=== PATIENT | female | born 1935 | race African-American/Black ===

== ENCOUNTER 2017-05-18 12:50 | Outpatient (CLI) | payer MEDICARE, OTHER | END 2017-05-18 12:51 | disposition home or self-care (01) | LOC: BICRAD 12:50 | PROVIDERS: ATTEND Family Medicine | DX: M54.5 Low back pain (principal); M51.34 Other intervertebral disc degeneration, thoracic region; M41.85 Other forms of scoliosis, thoracolumbar region; M47.896 Other spondylosis, lumbar region | CPT/HCPCS: 72072; 72100 ==

== ENCOUNTER 2018-10-01 14:29 | Inpatient (IN) | payer MEDICARE, OTHER ==
[2018-10-01 15:51] LABS: #Basophils 0.1 thou/uL (0.0-0.2); #Eosinphils 0.1 thou/uL (0.0-0.7); #Neutrophils 8.1 thou/uL (1.40-6.50); %Eosinophils 0.7 % (0.0-10.0); %Lymphocytes 24.5 % (21.0-51.0); %Monocytes 8.3 % (0.0-10.0); %Neutrophils 65.5 % (42.0-75.0); Hemoglobin 11.7 g/dL (12.0-16.0); Mean Corpuscular HGB CONC 32.4 g/dL (32.0-36.0); Mean Corpuscular Hemoglobin 28.8 pg (27.0-31.0); Mean Corpuscular Volume 88.9 fL (78.0-98.0); Platelet Count 365 thou/uL (130-400); RBC Distribution Width 13.8 % (11.5-14.5); Red Blood Cell (RBC) Count 4.06 mill/uL (4.20-5.40); White Blood Cell (WBC) Count 12.4 thou/uL (4.8-10.8)
[2018-10-01 16:11] LABS: ALT (SGPT) 8 U/L (8-55); AST (SGOT) 13 U/L (5-34); Albumin 3.6 g/dL (3.4-4.8); Alkaline Phosphatase 45 U/L (40-150); Anion Gap 15 mmol/L (10-20); BUN (Urea Nitrogen) 64 mg/dL (9.8-20.1); Bilirubin, Total 0.5 mg/dL (0.2-1.2); Calc. Creatinine Clearance 0 mL/min (70-130); Calcium 9.3 mg/dL (7.8-10.44); Carbon Dioxide 21 mmol/L (23-31); Chloride 107 mmol/L (98-107); Estimated GFR-MDRD 12; Globulin 3.5 g/dL (2.4-3.5); Glucose 115 mg/dL (83-110); Potassium 4.6 mmol/L (3.5-5.1); Protein, Total 7.1 g/dL (6.0-8.3); Sodium 138 mmol/L (136-145)
[2018-10-01 16:49] LABS: CK (CPK) 43 U/L (29-168); Lipase 35 U/L (8-78)
--- NOTE | 2018-10-01 17:03 | RAD ---
PORTABLE CHEST 1 VIEW: Date: 10/01/18 Time: 1540 hours HISTORY: Fever. FINDINGS: The heart size is borderline. The aorta is tortuous. The lungs are expanded without focal areas of co nsolidation, pneumothoraces, or pleural effusions. There is evidence of old granulomatous disease. IMPRESSION: No acute process. POS: [facility]
[2018-10-01] MEDS ORDERED: Cefepime 2 GM VIAL ONE (17:52)
[2018-10-01] MEDS ORDERED: Acetaminophen 325 MG TAB PO PRN (19:44)
[2018-10-01] MEDS ORDERED: Cefepime 2 GM in Sodium Chloride 0.9% 100 ML IVPB SCH (20:00)
[2018-10-01] MEDS: Sodium Chloride 0.9% 1,000 ML IV SCH (20:07)
[2018-10-01] MEDS ORDERED: Ondansetron PF 4 MG/2 ML Vial IVP PRN (20:38)
[2018-10-01] MEDS ORDERED: Ondansetron ODT 4 MG TAB PO PRN (20:38)
[2018-10-01] MEDS ORDERED: Cefepime 1 GM in Sodium Chloride 0.9% 100 ML IVPB SCH (21:00)
[2018-10-01 21:43] VITALS: BMI 22.1
[2018-10-01] MEDS ORDERED: Melatonin 3 MG TAB PO SCH (21:45)
[2018-10-01] MEDS ORDERED: Carvedilol 6.25 MG TAB PO SCH (21:45)
[2018-10-01] MEDS ORDERED: Donepezil HCl 10 MG TAB PO SCH (21:45)
[2018-10-01] MEDS ORDERED: Loratadine 10 MG TAB PO SCH (21:45)
[2018-10-01] MEDS ORDERED: Sodium Bicarbonate Tab 325 MG TAB PO SCH (22:15)
[2018-10-01] MEDS ORDERED: hydrALAZINE 25 MG TAB PO SCH (22:15)
[2018-10-01 23:55] LABS: Bilirubin Negative (Negative); Blood, Urine Negative (Negative); Clarity CLEAR (Clear); Glucose, Urine (Dipstick) Negative (Negative); Leukocyte Negative (Negative); Nitrite Negative (Negative); Protein, Urine (Dipstick) 300 mg/dL (Neg-Trace); Specific Gravity, Urine 1.014 (1.002-1.036); Urobilinogen 0.2 mg/dL (0.2-1.0); pH, Urine 5.5 (5.0-9.0)
[2018-10-01 23:56] LABS: Bacteria/HPF None Seen HPF (None Seen); Hyaline Casts/LPF 0-3 HYALINE CAST LPF (0-3 Hyaline); Pathc Cast-AUWi Flag 0.67 (0-2.49); RBC/HPF 0-3 HPF (0-3); Squamous Epithelial 0-3 HPF (0-3); WBC/HPF 0-3 HPF (0-3)
[2018-10-01 23:57] LABS: Urine Culture Reflex No No
[2018-10-02] MEDS: Sodium Chloride 0.9% 1,000 ML IV SCH ×2 (05:00→16:34)
[2018-10-02 06:45] LABS: #Basophils 0.1 thou/uL (0.0-0.2); #Eosinphils 0.1 thou/uL (0.0-0.7); #Lymphocytes 3.1 thou/uL (1.20-3.40); #Neutrophils 7.1 thou/uL (1.40-6.50); %Basophils 0.4 % (0.0-1.0); %Eosinophils 0.8 % (0.0-10.0); %Lymphocytes 27.4 % (21.0-51.0); %Monocytes 8.5 % (0.0-10.0); %Neutrophils 62.8 % (42.0-75.0); Hemoglobin 9.7 g/dL (12.0-16.0); Mean Corpuscular HGB CONC 33.2 g/dL (32.0-36.0); Mean Corpuscular Hemoglobin 29.2 pg (27.0-31.0); Mean Corpuscular Volume 87.8 fL (78.0-98.0); Mean Platelet Volume 7.9 fL (7.4-10.4); Platelet Count 292 thou/uL (130-400); RBC Distribution Width 13.5 % (11.5-14.5); Red Blood Cell (RBC) Count 3.33 mill/uL (4.20-5.40); White Blood Cell (WBC) Count 11.3 thou/uL (4.8-10.8)
[2018-10-02 07:00] LABS: Anion Gap 12 mmol/L (10-20); BUN (Urea Nitrogen) 58 mg/dL (9.8-20.1); Calc. Creatinine Clearance 12 mL/min (70-130); Calcium 8.3 mg/dL (7.8-10.44); Carbon Dioxide 19 mmol/L (23-31); Chloride 111 mmol/L (98-107); Estimated GFR-MDRD 14; Glucose 86 mg/dL (83-110); Potassium 4.3 mmol/L (3.5-5.1); Sodium 138 mmol/L (136-145)
[2018-10-02] MEDS: hydrALAZINE 25 MG TAB PO SCH ×3 (08:25→20:59)
[2018-10-02] MEDS: Sodium Bicarbonate Tab 325 MG TAB PO SCH ×2 (08:25→20:59)
[2018-10-02] MEDS: Carvedilol 6.25 MG TAB PO SCH ×2 (08:25→16:36)
[2018-10-02] MEDS: Febuxostat 40 MG TAB PO SCH (08:25)
[2018-10-02] MEDS: Amlodipine 10 MG TAB PO SCH (08:26)
[2018-10-02] MEDS: Enoxaparin Sodium 30 MG/0.3 ML SYRINGE SC SCH (08:26)
--- NOTE | 2018-10-02 08:26 | HP ---
PRIMARY CARE DOCTOR: CODE STATUS: Full code. TIME OF EVALUATION: 8:25 p.m. CHIEF COMPLAINT: Fever. HISTORY OF PRESENT ILLNESS: This is an 82 years old female patient with past medical history of dementia, hypertension, history of kidney disease, recurrent UTI. The patient came to the hospital after having fever for the past 2 days. Initially the daughter gave some Tylenol, the symptoms improved, then she had fever again today and she was recommended by the home health nurse to bring the patient to the hospital. The patient finished with Cipro in the past week for UTI treatment. The patient denies any other major symptoms. Symptoms were reported to be mild likely triggered by UTI. No alleviating factors. REVIEW OF SYSTEMS: CONSTITUTIONAL: The patient has underlying dementia. Information had been gathered from the daughter. The patient has fever, chills, generalized weakness. RESPIRATORY: No cough, sputum production, shortness of breath. CARDIOVASCULAR: No chest pain or palpitation. GASTROINTESTINAL: No nausea. No vomiting, diarrhea or abdominal pain. RIVER CAPTAIN: No dizziness, headache or feeling lightheaded. GENITOURINARY: No burning on urination. EXTREMITIES: No leg swelling. All other systems were reviewed and negative except for the findings mentioned above. PAST MEDICAL HISTORY: Positive for hypertension, kidney disease. SOCIAL HISTORY: The patient lives at home with family. PAST SURGICAL HISTORY: Negative. FAMILY HISTORY: Mother had an FL. Father has prostate cancer. ALLERGIES: NO KNOWN DRUG ALLERGIES REPORTED. MEDICATIONS: 1. Carvedilol. 2. Uloric. 3. Megestrol. The list needs to be updated by the nursing staff. That was given by the patient, it needs to be reviewed later on. PHYSICAL EXAMINATION: VITAL SIGNS: Blood pressure 124/63, heart rate 78, respiratory rate of 15, temperature 99, pain 8/10. Oxygen saturation was 98% on room. GENERAL APPEARANCE: The patient is alert, oriented, can start simple conversations. No acute distress. HEENT: Eyes, normal conjunctivae. Moist oral mucosa. Anicteric. No JVD. RESPIRATORY: Bilateral air entry. No rales or wheezes. Symmetric expansion. CARDIOVASCULAR: Normal rate. Regular rhythm. No murmurs. No gallop. No edema. ABDOMEN: Soft. Normal bowel sounds. MUSCULOSKELETAL: Baseline range of motion and strength. No tenderness. SKIN: Warm and intact. No pallor. No rash. No redness. EXTREMITIES: Peripheral pulses are present. Capillary refill seems to be intact. NEUROLOGICAL: No evidence of any new focal weakness. Speech seems to be intact. Cranial nerves seems to be intact. PSYCHIATRIC: The patient is in good mood. The patient has underlying dementia, suboptimal judgment. IMAGING DATA: EKG was reviewed. The patient has sinus rhythm with some PACs. Ventricular rate 77, IA 152, QRS 78, and QT corrected 463. left ventricular hypertrophy. Chest x-ray was negative. LABORATORY DATA: Reviewed. The patient has white count 12.4, hemoglobin 11.7, MCV 88.9, platelet count 365. Chemistry: Sodium 138, potassium 4.6, chloride 107, carbon dioxide 21, anion gap 15, BUN 64, creatinine 4.3, GFR 12, glucose 115, lactic acid 1.6. LFTs were negative. Beta-natriuretic peptide 140. ASSESSMENT AND PLAN: The patient will be placed in the hospital for the follow medical problems: 1. Urinary tract infection, the urine is pending. The patient presented with fever. The patient had recent urinary tract infection. The patient has been started on cefepime since she was getting Cipro past week. We will follow urine culture and adjust treatment as needed as per sensitivity. 2. Possible sepsis. The patient has fever. The patient has white count 12.4, started on antibiotics. Rest of treatment as above. 3. Chronic kidney disease. been consulted. We will follow recommendations. 4. Hyperglycemia. No reported diabetes. Can be secondary to underlying sepsis, we will monitor, no need for any acute intervention at this point. 5. Deep venous thrombosis prophylaxis. 6. Uncontrolled hypertension. The patient presented with systolic blood pressure 178. We will reconcile home medications. We will not treat very aggressively since patient has underlying sepsis. 7. Deep venous thrombosis prophylaxis. Job ID: [id number]
[2018-10-02] MEDS ORDERED: Cefepime 1 GM in Sodium Chloride 0.9% 100 ML IVPB SCH (09:00)
--- NOTE | 2018-10-02 10:15 | CON ---
DATE OF CONSULTATION: 10/02/2018 CONSULTING PHYSICIAN: Kevin Gannon MD REASON FOR CONSULT: Acute kidney injury. REASON FOR ADMISSION: Fever. HISTORY OF PRESENT ILLNESS: An 82-year-old female with history of chronic kidney disease and followed with Dr. Alfonso, hypertension, and gout, came to the hospital with above complaints. Nephrology was consulted for acute kidney injury. The patient is a poor historian, not able to give much history, and most of the history was obtained from the review of the records. no rash. No nausea or vomiting. No chest pain or palpitation. PAST MEDICAL HISTORY: Positive for hypertension, chronic kidney disease, and gout. PAST SURGICAL HISTORY: None known. HOME MEDICATIONS: Include: 1. Furosemide. 2. Uloric. 3. Norvasc. 4. Megace. 5. Melatonin. 6. Hydralazine. 7. Donepezil. 8. Carvedilol. ALLERGIES: NO KNOWN DRUG ALLERGIES. SOCIAL HISTORY: No smoking, alcohol, or illicit drug abuse. FAMILY HISTORY: No history of kidney disease. REVIEW OF SYSTEMS: Could not be obtained. The patient is a poor historian. PHYSICAL EXAMINATION: GENERAL: Reveals an elderly female, in no apparent distress. VITAL SIGNS: Temperature 98.3, pulse 70, respiratory rate 16, and blood pressure 152/48. HEENT: Atraumatic, normocephalic. Oral mucosa is moist. NECK: Supple. CARDIOVASCULAR: S1, S2 heard. Rate and rhythm regular. RESPIRATORY: Clear. GASTROINTESTINAL: Abdomen is soft. MUSCULOSKELETAL: 1+ edema. DERMATOLOGIC: No skin rash. NEUROLOGIC: Alert and awake, but confused and dementia. PSYCHIATRIC: Mood and affect normal. LABORATORY DATA: Hemoglobin 9.7. Potassium 4.3, BUN is 58, and creatinine is 3.7. Her baseline creatinine is around 2.6 to 3. ASSESSMENT AND PLAN: 1. Acute kidney injury on chronic kidney disease, stage 4, with a slight improvement in renal function with medical management. No acute indication for dialysis. 2. Metabolic acidosis. 3. Anemia of chronic disease. 4. Hypertension, stable. 5. Dementia. Continue supportive care. No acute indication for dialysis. Avoid nephrotoxins. We will follow. Thank you for the consult. Job ID: [id number]
[2018-10-02] MEDS: Stress 600 With Zinc 1 TAB PO SCH (12:07)
--- NOTE | 2018-10-02 14:31 | PDOC.PN ---
- Subjective Encounter Start Date: 10/02/18 Encounter Start Time: 14:29 Ms. Boles was seen today in follow-up. She says she feels better today. No new complaints except for a cough, which is non-productive. - Objective Resuscitation Status - Order Detail: 10/01/18 20:38 Resuscitation Status Routine Resuscitation Status: FULL: Full Resuscitation MAR Reviewed: Yes Vital Signs & Weight: Vital Signs (12 hours) Temp Pulse Resp BP BP Pulse Ox 10/02/18 08:26 70 152/48 H 10/02/18 08:25 70 152/48 H 10/02/18 08:02 98.3 F 70 16 152/48 H 96 10/02/18 08:00 96 10/02/18 05:32 98.6 F 73 20 175/67 H 96 Weight Weight 146 lb I&O: 10/01/18 10/02/18 10/03/18 06:59 06:59 06:59 Intake Total 1900 Output Total 700 Balance 1200 Result Diagrams: 10/02/18 05:59 10/02/18 05:59 Phys Exam - Physical Examination HEENT: PERRLA Respiratory: no wheezing Cardiovascular: RRR, no significant murmur, no rub Gastrointestinal: soft, non-tender, no distention, positive bowel sounds Musculoskeletal: no edema, pulses present Neurological: non-focal, normal sensation Dx/Plan (1) Fever Code(s): R50.9 - FEVER, UNSPECIFIED Status: Acute (2) Acute on chronic renal failure Code(s): N17.9 - ACUTE KIDNEY FAILURE, UNSPECIFIED; N18.9 - CHRONIC KIDNEY DISEASE, UNSPECIFIED Status: Acute (3) Hypertension Code(s): I10 - ESSENTIAL (PRIMARY) HYPERTENSION Status: Acute (4) Dementia Code(s): F03.90 - UNSPECIFIED DEMENTIA WITHOUT BEHAVIORAL DISTURBANCE Status: Chronic - Plan * Acute on chronic kidney failure- improving with hydration * UTI- This is not apparent with the lab work on this admission. It could be partially treated with antibiotics prior to admission. I suspect we can discontinue Antibiotics and observe * HTN - blood pressure is stable * Dementia- stable * Ambulate
[2018-10-02] MEDS ORDERED: Loratadine 10 MG TAB PO PRN (15:34)
[2018-10-02] MEDS ORDERED: Acetaminophen 325 MG TAB PO PRN (15:35)
[2018-10-02] MEDS: Melatonin 3 MG TAB PO SCH (20:57)
[2018-10-02] MEDS: Loratadine 10 MG TAB PO SCH (20:58)
[2018-10-02] MEDS: Donepezil HCl 10 MG TAB PO SCH (20:59)
[2018-10-02] MEDS ORDERED: Melatonin 3 MG TAB PO SCH (21:00)
[2018-10-02] MEDS ORDERED: Loratadine 10 MG TAB PO SCH (21:00)
[2018-10-02] MEDS ORDERED: Donepezil HCl 10 MG TAB PO SCH (21:00)
[2018-10-03] MEDS: Sodium Chloride 0.9% 1,000 ML IV SCH ×3 (01:00→08:24)
[2018-10-03 06:31] LABS: Anion Gap 13 mmol/L (10-20); BUN (Urea Nitrogen) 47 mg/dL (9.8-20.1); Calc. Creatinine Clearance 13 mL/min (70-130); Carbon Dioxide 16 mmol/L (23-31); Chloride 111 mmol/L (98-107); Estimated GFR-MDRD 16; Glucose 92 mg/dL (83-110); Sodium 135 mmol/L (136-145)
[2018-10-03] MEDS: Febuxostat 40 MG TAB PO SCH (08:12)
[2018-10-03] MEDS: hydrALAZINE 25 MG TAB PO SCH ×3 (08:13→20:08)
[2018-10-03] MEDS: Carvedilol 6.25 MG TAB PO SCH ×2 (08:13→17:05)
[2018-10-03] MEDS: Sodium Bicarbonate Tab 325 MG TAB PO SCH (08:14)
[2018-10-03] MEDS: Enoxaparin Sodium 30 MG/0.3 ML SYRINGE SC SCH (08:14)
[2018-10-03] MEDS: Amlodipine 10 MG TAB PO SCH (08:14)
--- NOTE | 2018-10-03 09:40 | PQF ---
AMRIK BIRCH TONI MD [id number] CLINICAL DOCUMENTATION IMPROVEMENT CLARIFICATION FORM: ICD-10 Updated PLEASE DO AN ADDENDUM TO THE PROGRESS NOTE WITH ANY DOCUMENTATION UPDATES OR ADDITIONS AND CARRY THROUGH TO DC SUMMARY. THANK YOU. DATE: 10/03 ATTN: DR. MICHELLE MARS Please exercise your independent, professional judgment in responding to the clarification form. Clinical indicators are provided on the bottom of this form for your review. Please check appropriate box(es): [ ] Sepsis due to: (Pna, UTI, gangrenous gall bladder, etc.) [ ] SIRS due to non-infectious process (please specify etiology) [ ] with organ dysfunction [ ] without organ dysfunction [ ] Severe sepsis with acute organ dysfunction of: (Examples: respiratory failure, encephalopathy, acute kidney failure, other) [ ] Localized infection without sepsis [ X ] Other diagnosis ___Acute renal failure due to dehydration [ ] Unable to determine In addition, please specify: Present on Admission (POA): [X ] Yes [ ] No [ ] Unable to determine For continuity of documentation, please document condition throughout progress notes and discharge summary. Thank You. CLINICAL INDICATORS - SIGNS / SYMPTOMS / LABS ER DOCUMENTATION 10/01: TRIAGE: HIGHEST FEVER WAS MONDAY 103; PRESENTS TO ED C/O FEVER X2 DAYS. RECENTLY FINISHED COURSE OF ABX, CIPRO, LAST WEEK FOR UTI TREATMENT. PT APPEARS TO HAVE SEPSIS ALONG W/WORSENING RENAL FUNCTION. ER FINAL DIAGNOSIS: SEPSIS ATTENDING H&P (LIZZ) 10/01: ASSESSMENT/PLAN: 1) UTI; 2) POSSIBLE SEPSIS. THE PT HAS FEVER. THE PT HAS WHITE COUNT 12.4. STARTED ON ANTIBIOTICS; 4) HYPERGLYCEMIA. NO REPORTED DIABETES. CAN BE 2/2 UNDERLYING SEPSIS; 6) UNCONTROLLED HTN. WE WILL NOT TREAT VERY AGGRESSIVELY SINCE PT HAS UNDERLYING SEPSIS. NEPH CONSULT 10/02: ASSESSMENT/PLAN: 1) ETIENNE NO FURTHER MENTION OF SEPSIS RISKS: RECENT UTI (H&P) ADVANCED AGE (82) FEVER (H&P) ETIENNE (NEPHROLOGY CON 10/02) TREATMENT: IVF (2L NS IN ER 10/01) IV ANTIBIOTICS (CEFEPIME 10/01 - ; LEVAQUIN IN ED 10/01) THANK YOU! Suze (This form is maintained as a part of the permanent medical record) 2014 [employer]. All Rights Reserved Suze Lyons RN, BSN [email or web address] Office: [phone] [facility]
--- NOTE | 2018-10-03 10:29 | PRG ---
DATE OF SERVICE: 10/03/2018 SUBJECTIVE: Patient was seen and examined at bedside and overnight events noted. Patient denies any shortness of breath or chest pain or palpitation. No history of nausea or vomiting or diarrhea or fever or chills or cramps. OBJECTIVE: GENERAL: This is an elderly female, in no apparent distress. VITAL SIGNS: Temperature 98. Heart rate 80. Respiratory rate 16. Blood pressure 182/75. HEENT: Atraumatic, normocephalic. Oral mucosa is moist NECK: Supple. CARDIOVASCULAR: S1, S2 heard. Rate and rhythm regular. RESPIRATORY: Clear to auscultation. GASTROINTESTINAL: Abdomen is soft. MUSCULOSKELETAL: No tenderness. No edema. DERMATOLOGIC: No skin rash. NEUROLOGIC: Alert and awake and oriented X3. No focal neurologic deficits. Moving all the extremities. PSYCHIATRIC: Mood and affect normal. LABORATORY DATA: Potassium is 5.0, BUN is 47, creatinine is 3.3. ASSESSMENT AND PLAN: 1. Acute kidney injury on chronic kidney disease, stage 4. Renal function is stable. 2. Urinary retention. Family reports urinary retention. We will check renal ultrasound. 3. Anemia of chronic disease. 4. Possible urinary tract infection. 5. Dementia. 6. Hypertension. 7. Continue hydration as tolerated. Avoid nephrotoxins. We will stop IV fluids. Continue oral hydration and check renal ultrasound. We will stop sodium bicarb for now. Job ID: [id number]
--- NOTE | 2018-10-03 11:14 | ULT ---
ULTRASOUND RENAL: DATE: 10/03/2018 HISTORY: 82-year-old female with acute kidney injury. Rule out obstruction. FINDINGS: Right kidney: 9 x 3.5 x 4.5 cm. Left kidney: 9 x 4 x 3 cm. Bilateral renal parenchymal echogenicity is diffusely, homogeneously increased, representing medical renal disease. No hydronephrosis bilaterally. 1.5 cm round central mid pole parapelvic right renal cyst. 0.9 cm right renal mid-lower pole parenchymal cyst. Urinary bladder volume 145 mL IMPRESSION: 1) no hydronephrosis. 2) increased renal parenchymal echogenicity is evidence for medical renal disease. 3) at least 2 small right renal cysts.
[2018-10-03] MEDS: Stress 600 With Zinc 1 TAB PO SCH (13:15)
--- NOTE | 2018-10-03 16:22 | PDOC.PN ---
- Subjective Encounter Start Date: 10/03/18 Encounter Start Time: 16:20 Ms. Boles was seen today in follow-up of acute renal failure. She is resting comfortably. No problems voiced by staff. - Objective Resuscitation Status - Order Detail: 10/01/18 20:38 Resuscitation Status Routine Resuscitation Status: FULL: Full Resuscitation MAR Reviewed: Yes Vital Signs & Weight: Vital Signs (12 hours) Temp Pulse Resp BP BP Pulse Ox 10/03/18 11:00 98.5 F 72 16 155/63 H 96 10/03/18 08:14 88 10/03/18 08:13 88 182/75 H 10/03/18 07:39 98.8 F 88 16 182/75 H 98 Weight Weight 146 lb I&O: 10/02/18 10/03/18 10/04/18 06:59 06:59 06:59 Intake Total 1900 3700 Output Total 700 3 Balance 1200 3697 Result Diagrams: 10/02/18 05:59 10/03/18 06:02 Phys Exam - Physical Examination HEENT: PERRLA Respiratory: no wheezing, no rales, no rhonchi, clear to auscultation bilateral Cardiovascular: RRR, no significant murmur, no rub Gastrointestinal: soft, non-tender, no distention, positive bowel sounds Musculoskeletal: no edema, pulses present Dx/Plan (1) Acute on chronic renal failure Code(s): N17.9 - ACUTE KIDNEY FAILURE, UNSPECIFIED; N18.9 - CHRONIC KIDNEY DISEASE, UNSPECIFIED Status: Acute (2) Hypertension Code(s): I10 - ESSENTIAL (PRIMARY) HYPERTENSION Status: Acute (3) Dementia Code(s): F03.90 - UNSPECIFIED DEMENTIA WITHOUT BEHAVIORAL DISTURBANCE Status: Chronic - Plan * Acute on chronic kidney disease- improved with hydration-renal ultrasound was done and was negative for evidence of hydronephrosis * There was no evidence of infection- and antibiotics were discontinued * HTN- blood pressure is labile * Dementia- stable * Hopefully home in the AM.
[2018-10-03] MEDS: Donepezil HCl 10 MG TAB PO SCH (20:07)
[2018-10-03] MEDS: Loratadine 10 MG TAB PO SCH (20:08)
[2018-10-03] MEDS: Melatonin 3 MG TAB PO SCH (22:20)
[2018-10-04] MEDS: Carvedilol 6.25 MG TAB PO SCH (07:50)
[2018-10-04] MEDS: Amlodipine 10 MG TAB PO SCH (07:50)
[2018-10-04] MEDS: hydrALAZINE 25 MG TAB PO SCH (07:50)
[2018-10-04] MEDS: Enoxaparin Sodium 30 MG/0.3 ML SYRINGE SC SCH (07:51)
[2018-10-04] MEDS: Febuxostat 40 MG TAB PO SCH (08:15)
[2018-10-04 09:12] LABS: Anion Gap 10 mmol/L (10-20); BUN (Urea Nitrogen) 44 mg/dL (9.8-20.1); Calc. Creatinine Clearance 14 mL/min (70-130); Calcium 8.6 mg/dL (7.8-10.44); Carbon Dioxide 21 mmol/L (23-31); Chloride 110 mmol/L (98-107); Estimated GFR-MDRD 17; Glucose 128 mg/dL (83-110); Potassium 4.1 mmol/L (3.5-5.1); Sodium 137 mmol/L (136-145)
[2018-10-04 11:13] VITALS: BP 163/64; TEMP 99
--- NOTE | 2018-10-04 11:27 | PRG ---
DATE OF SERVICE: 10/04/2018 SUBJECTIVE: Patient was seen and examined at bedside and overnight events noted. Patient denies any shortness of breath or chest pain or palpitation. No history of nausea or vomiting or diarrhea or fever or chills or cramps. OBJECTIVE: GENERAL: This is an elderly female, in no apparent distress. VITAL SIGNS: Temperature 97. Pulse 63. Respiratory rate 18. Blood pressure 178/72. HEENT: Atraumatic, normocephalic. Oral mucosa is moist NECK: Supple. CARDIOVASCULAR: S1, S2 heard. Rate and rhythm regular. RESPIRATORY: Clear to auscultation. GASTROINTESTINAL: Abdomen is soft. MUSCULOSKELETAL: No tenderness. No edema. DERMATOLOGIC: No skin rash. NEUROLOGIC: Alert and awake and oriented X3. No focal neurologic deficits. Moving all the extremities. PSYCHIATRIC: Mood and affect normal. LABORATORY DATA: Potassium is 4.1, BUN is 44, creatinine is 3.2. ASSESSMENT AND PLAN: 1. Acute kidney injury on chronic kidney stage 4 with improvement of renal function. GFR improved to 17 from 12. Creatinine improved to 3.2 from 4.3. 2. Urinary retention. Ultrasound was negative. 3. Dementia. 4. Hypertension. Overall renal function is better. Continue hydration. Avoid nephrotoxins. We will follow. Job ID: [id number]
[2018-10-04] MEDS: Stress 600 With Zinc 1 TAB PO SCH (12:00)
--- NOTE | 2018-10-04 12:15 | PDOC.PN ---
- Subjective Encounter Start Date: 10/04/18 Encounter Start Time: 12:13 Ms. Boles was seen today in follow-up of acute renal failure. She does not have any complaints. she is sitting up eating. - Objective Resuscitation Status - Order Detail: 10/01/18 20:38 Resuscitation Status Routine Resuscitation Status: FULL: Full Resuscitation MAR Reviewed: Yes Vital Signs & Weight: Vital Signs (12 hours) Temp Pulse Resp BP Pulse Ox 10/04/18 11:12 99.0 F 74 16 163/64 H 97 10/04/18 07:34 98.7 F 83 18 178/72 H 98 10/04/18 03:42 97.9 F 88 20 173/68 H 94 L Weight Weight 146 lb I&O: 10/03/18 10/04/18 10/05/18 06:59 06:59 06:59 Intake Total 3700 2380 Output Total 3 Balance 3697 2380 Result Diagrams: 10/02/18 05:59 10/04/18 08:39 Phys Exam - Physical Examination HEENT: PERRLA Respiratory: no wheezing, no rales, no rhonchi, clear to auscultation bilateral Cardiovascular: RRR, no significant murmur, no rub Gastrointestinal: soft, non-tender, no distention, positive bowel sounds Musculoskeletal: no edema, pulses present Dx/Plan (1) Acute on chronic renal failure Code(s): N17.9 - ACUTE KIDNEY FAILURE, UNSPECIFIED; N18.9 - CHRONIC KIDNEY DISEASE, UNSPECIFIED Status: Acute (2) Hypertension Code(s): I10 - ESSENTIAL (PRIMARY) HYPERTENSION Status: Acute (3) Dementia Code(s): F03.90 - UNSPECIFIED DEMENTIA WITHOUT BEHAVIORAL DISTURBANCE Status: Chronic - Plan * Acute kidney injury- improved * HTN- blood pressure is a bit labile, but otherwise she is ok * Dementia- stable * She is stable for discharge home.
--- NOTE | 2018-10-05 03:28 | DIS ---
DATE OF ADMISSION: 10/01/2018 DATE OF DISCHARGE: 10/04/2018 PRIMARY CARE PHYSICIAN: Dr. Iglesias. DISCHARGE DISPOSITION: Home. PRIMARY DISCHARGE DIAGNOSES: 1. Gdicl-lk-mkspjts kidney injury. 2. Hypertension. 3. Dementia. DISCHARGE MEDICATIONS: They are the same as that on admission and include: 1. Vitamin B complex once daily. 2. Sodium bicarbonate 325 mg twice daily. 3. Melatonin 2 mg at bedtime. 4. Megace 400 mg daily. 5. Claritin 10 mg at bedtime. 6. Hydralazine 100 mg t.i.d. 7. Lasix 20 mg every other day. 8. Uloric 40 mg daily. 9. Duloxetine 20 mg twice daily. 10. Aricept 10 mg at bedtime. 11. Carvedilol 12.5 mg twice daily. 12. Amlodipine 10 mg daily. PROCEDURES DONE DURING THE ADMISSION: The patient had a renal ultrasound, which shows no evidence of hydronephrosis. There was increased renal parenchyma evidence for medical renal disease and at least 2 small renal cysts. CODE STATUS: Full code. ALLERGIES: NO KNOWN DRUG ALLERGIES. HOSPITAL COURSE: Ms. Boles is a pleasant 82-year-old female, who was brought to the hospital after she suffered a fever at home. Her cardiac monitor technician also noted that she had not urinated the entire day and for this reason, she was concerned and brought her to the hospital. In the ER, she was found to have iskhg-vt-[id number] kidney injury with her creatinine going as high as 4.3. She was started on IV hydration and Nephrology was consulted. She sees Dr. Lopez on a regular basis and he felt that the renal insufficiency was likely due to volume depletion. A renal ultrasound was done as a precaution and did not show any evidence of obstruction. I suspect that her decreased oral intake is likely due to complication of dementia. This was explained to the family and this possibly can be a recurrent problem despite care at home. They will do their best with regard to trying to keep her hydrated and hopefully can avoid early readmission. The patient did not have any evidence of infection. Her urine and blood cultures were negative as well as the influenza screen and for this reason, there is no antibiotic treatment at discharge. Job ID: [id number]
== END 2018-10-04 14:41 | disposition home or self-care (01) | DRG 683 ==
LOC: ERS 14:29 → T4-B 17:53
PROVIDERS: ADMIT Emergency Medicine; ATTEND Emergency Medicine
DX: N17.9 Acute kidney failure, unspecified (principal); E87.2 Acidosis; E86.0 Dehydration; F03.90 Unspecified dementia, unspecified severity, without behavioral disturbance, psychotic disturbance, mood disturbance, and anxiety; N18.4 Chronic kidney disease, stage 4 (severe); I12.9 Hypertensive chronic kidney disease with stage 1 through stage 4 chronic kidney disease, or unspecified chronic kidney disease; D63.1 Anemia in chronic kidney disease; M10.9 Gout, unspecified; R73.9 Hyperglycemia, unspecified; Z79.899 Other long term (current) drug therapy
CPT/HCPCS: 36415; 71045; 76770; 80048; 80053; 81001; 82550; 83605; 83690; 83880; 85025; 87040; 87804; 93005; 96365; J0692; J1650; J1956; J3490